=== PATIENT | female | born 1945 | race American Indian/Alaskan Native ===

== ENCOUNTER 2018-12-21 18:08 | Emergency (ER) | payer MEDICARE ==
[2018-12-21 18:15] VITALS: RESP 18
[2018-12-21] MEDS ORDERED: Sodium Chloride 0.9% 1,000 ML IV ONE ×2 (19:12→19:37)
[2018-12-21] MEDS ORDERED: Albuterol 0.083% Inhal Sol (2.5 mg/3 mL) UD INH STA (19:13)
[2018-12-21 19:30] LABS: BASO % 0.2 % (0.0-2.0); HEMOGLOBIN 13.1 g/dL (11.0-16.0); LYMPH # 1.3 K/uL (1.0-4.3); LYMPH % 21.1 % (20.0-40.0); MEAN CELL VOLUME 83.3 fL (81.0-99.0); MEAN CORPUSCULAR HEMOGLOBIN 27.5 pg (27.0-31.0); MEAN PLATELET VOLUME 8.1 fL (7.2-11.7); MONO # 1.2 K/uL (0.0-0.8); NEUT # 3.8 K/uL (1.8-7.0); NEUT % 59.7 % (50.0-75.0); RBC 4.78 Mil/uL (3.80-5.20); RED CELL DISTRIBUTION WIDTH 13.2 % (11.5-14.5); WHITE BLOOD COUNT 6.3 K/uL (4.8-10.8)
[2018-12-21 19:44] LABS: ALB/GLOB RATIO 1.2 (1.0-2.1); ALBUMIN 4.5 g/dL (3.5-5.0); ALT/SGPT 12 U/L (9-52); AST/SGOT 36 U/L (14-36); BLOOD UREA NITROGEN 15 mg/dL (7-17); CALCIUM 9.1 mg/dl (8.6-10.4); GFR NON-AFRICAN AMERICAN > 60
[2018-12-21] MEDS ORDERED: Albuterol 0.083% Inhal Sol (2.5 mg/3 mL) UD ONE (19:45)
[2018-12-21] MEDS ORDERED: Sodium Chloride 0.9% 1,000 ML ONE (19:45)
[2018-12-21 19:58] LABS: B-TYPE NATRIURETIC PEPTIDE 73.6 pg/mL (0-900)
[2018-12-21 20:11] VITALS: BP 121/72; PULSE 85; TEMP 99.4; O2SAT 100
--- NOTE | 2018-12-21 20:21 | C.PDOC ---
History Of Present Illness 73 y/o female presents to the ED complaining of a 2 week history of cough and congestion. Cough is producing clear phlegm. Patient also reports feeling weak. She denies any chest pain or dizziness. States she feels sore from the coughing. Time Seen by Provider: 12/21/18 19:09 Chief Complaint (Nursing): Cough, Cold, Congestion History Per: Patient History/Exam Limitations: no limitations Onset/Duration Of Symptoms: Days Current Symptoms Are (Timing): Still Present Associated Symptoms: Cough, Sputum, Myalgias, Nasal Congestion Past Medical History Reviewed: Historical Data, Nursing Documentation, Vital Signs Vital Signs: Last Vital Signs Temp 99.4 F 12/21/18 20:10 Pulse 85 12/21/18 20:10 Resp 18 12/21/18 20:10 BP 121/72 12/21/18 20:10 Pulse Ox 100 12/21/18 20:10 - Medical History PMH: No Chronic Diseases Surgical History: No Surg Hx Family History: States: Unknown Family Hx - Social History Hx Tobacco Use: No Hx Alcohol Use: No Hx Substance Use: No - Immunization History Hx Tetanus Toxoid Vaccination: No Hx Influenza Vaccination: Yes Hx Pneumococcal Vaccination: No Review Of Systems Except As Marked, All Systems Reviewed And Found Negative. Constitutional: Positive for: Weakness, Other (Bodyaches). Negative for: Fever ENT: Positive for: Nose Congestion Cardiovascular: Negative for: Chest Pain, Palpitations Respiratory: Positive for: Cough, Sputum Gastrointestinal: Negative for: Vomiting, Diarrhea Neurological: Negative for: Headache, Dizziness Physical Exam - Physical Exam Appears: Non-toxic, No Acute Distress Skin: Normal Color, Warm Head: Atraumatic, Normacephalic Eye(s): bilateral: Normal Inspection, PERRL, EOMI Oral Mucosa: Moist Neck: Normal ROM Chest: Symmetrical Cardiovascular: Rhythm Regular, No Murmur Respiratory: No Rhonchi, No Wheezing, Other (coarse breath sounds, otherwise clear) Gastrointestinal/Abdominal: Soft, No Tenderness, No Distention Extremity: Bilateral: Atraumatic, Normal Color And Temperature Neurological/Psych: Oriented x3, Normal Speech ED Course And Treatment - Laboratory Results Result Diagrams: 12/21/18 19:25 12/21/18 19:25 Lab Results: Troponin I < 0.0120 ng/mL (0.00-0.120) 12/21/18 19:25 NT-Pro-B Natriuret Pep 73.6 pg/mL (0-900) 12/21/18 19:25 Total Bilirubin 0.7 mg/dL (0.2-1.3) 12/21/18 19:25 AST 36 U/L (14-36) 12/21/18 19:25 ALT 12 U/L (9-52) 12/21/18 19:25 Alkaline Phosphatase 99 U/L (38-126) 12/21/18 19:25 Total Protein 8.1 g/dL (6.3-8.3) 12/21/18 19:25 Albumin 4.5 g/dL (3.5-5.0) 12/21/18 19:25 Globulin 3.6 gm/dL (2.2-3.9) 12/21/18 19:25 Albumin/Globulin Ratio 1.2 (1.0-2.1) 12/21/18 19:25 O2 Sat by Pulse Oximetry: 100 (RA) Pulse Ox Interpretation: Normal Medical Decision Making Medical Decision Making: Impression: Viral Illness Plan: --CMP, CBC, cardiac enzymes --Flu swab --EKG --Chest x-ray --IV fluids --30 mg IV Toradol --Albuterol neb x1 --Reassess Progress: Labs reviewed, + flu A. Administered 75 mg PO Tamiflu. On re-evaluation patient is resting comfortably, in no acute distress. VSS. Patient counseled regarding diagnosis and treatment plan. Disposition Counseled Patient/Family Regarding: Studies Performed, Diagnosis, Need For F ollowup, Rx Given - Disposition Referrals: [facility] [Outside] Disposition: HOME/ ROUTINE Disposition Time: 20:20 Condition: STABLE Additional Instructions: follow up with your doctor within 2 days call to make an appointment take medications as prescribed return to "ER if symptoms worsens or progress Prescriptions: Albuterol HFA [Ventolin HFA 90 mcg/actuation (8 g)] 2 puff IH [id number] #1 puff Albuterol Sulfate [Proventil Hfa] 2 puff IH QID #1 hfa.aer.ad Benzonatate [Tessalon Perles] 100 mg PO BID PRN #14 tab PRN Reason: Cough Oseltamivir Phosphate [Tamiflu] 75 mg PO BID #10 capsule Instructions: Influenza (ED) Forms: General Discharge Instructions, [facility] (Cameroonian) - POA Present On Arrival: None - Clinical Impression Clinical Impression: Influenza - Scribe Statement The provider has reviewed the documentation as recorded by the Mikeibe Giselle Huff Provider Attestation: All medical record entries made by the Mikeibe were at my direction and personally dictated by me. I have reviewed the chart and agree that the record accurately reflects my personal performance of the history, physical exam, medical decision making, and the department course for this patient. I have also personally directed, reviewed, and agree with the discharge instructions and disposition.
--- NOTE | 2018-12-21 20:22 | C.PDOC ---
Time Seen by Provider: 12/21/18 19:09 Chief Complaint (Nursing): Cough, Cold, Congestion Past Medical History Vital Signs: Last Vital Signs Temp 99.4 F 12/21/18 20:10 Pulse 85 12/21/18 20:10 Resp 18 12/21/18 20:10 BP 121/72 12/21/18 20:10 Pulse Ox 100 12/21/18 20:10 - Social History Hx Alcohol Use: No Hx Substance Use: No - Immunization History Hx Tetanus Toxoid Vaccination: No Hx Influenza Vaccination: Yes Hx Pneumococcal Vaccination: No ED Course And Treatment - Laboratory Results Result Diagrams: 12/21/18 19:25 12/21/18 19:25 Lab Results: Troponin I < 0.0120 ng/mL (0.00-0.120) 12/21/18 19:25 NT-Pro-B Natriuret Pep 73.6 pg/mL (0-900) 12/21/18 19:25 Total Bilirubin 0.7 mg/dL (0.2-1.3) 12/21/18 19:25 AST 36 U/L (14-36) 12/21/18 19:25 ALT 12 U/L (9-52) 12/21/18 19:25 Alkaline Phosphatase 99 U/L (38-126) 12/21/18 19:25 Total Protein 8.1 g/dL (6.3-8.3) 12/21/18 19:25 Albumin 4.5 g/dL (3.5-5.0) 12/21/18 19:25 Globulin 3.6 gm/dL (2.2-3.9) 12/21/18 19:25 Albumin/Globulin Ratio 1.2 (1.0-2.1) 12/21/18 19:25 O2 Sat by Pulse Oximetry: 100 Disposition Counseled Patient/Family Regarding: Studies Performed, Diagnosis, Need For Followup, Rx Given - Disposition Referrals: [facility] [Outside] Disposition: HOME/ ROUTINE Disposition Time: 20:20 Condition: IMPROVED Additional Instructions: follow up with your doctor within 2 days call to make an appointment take medications as prescribed return to "ER if symptoms worsens or progress Prescriptions: Albuterol HFA [Ventolin HFA 90 mcg/actuation (8 g)] 2 puff IH [id number] #1 puff Albuterol Sulfate [Proventil Hfa] 2 puff IH QID #1 hfa.aer.ad Benzonatate [Tessalon Perles] 100 mg PO BID PRN #14 tab PRN Reason: Cough Oseltamivir Phosphate [Tamiflu] 75 mg PO BID #10 capsule Instructions: Influenza (ED) Forms: [facility] (Czech), General Discharge Instructions - Clinical Impression Clinical Impression: Influenza
--- NOTE | 2018-12-22 09:03 | RAD ---
Date of service: 12/21/2018 HISTORY: SOB COMPARISON: No prior. TECHNIQUE: Chest PA and lateral FINDINGS: LUNGS: No active pulmonary disease. PLEURA: No significant pleural effusion identified. No pneumothorax apparent. CARDIOVASCULAR: No aortic atherosclerotic calcification present. Normal cardiac size. No pulmonary vascular congestion. OSSEOUS STRUCTURES: No significant abnormalities. VISUALIZED UPPER ABDOMEN: Normal. OTHER FINDINGS: None. IMPRESSION: No acute cardiopulmonary disease appreciated.
== END 2018-12-21 20:38 | disposition home or self-care (01) ==
LOC: C.ER 18:08
DX: J11.1 Influenza due to unidentified influenza virus with other respiratory manifestations (principal)
CPT/HCPCS: 71046; 80053; 83880; 84484; 85025; 87804; 96374; 99284; J1885; J7030